=== PATIENT | male | born 1940 | race Caucasian/White ===

== ENCOUNTER 2018-06-22 16:12 | Emergency (ER) | payer MEDICARE ==
[2018-06-22] MEDS ORDERED: Adacel (T-DAP) 0.5 ML SYRINGE ONE (16:34)
[2018-06-22] MEDS ORDERED: Lidocaine 1% w/Epinephrine 1:100K 20 ML VIAL ONE (16:34)
[2018-06-22] MEDS ORDERED: Bacitracin Zinc 1 Packet ONE (17:34)
--- NOTE | 2018-06-22 17:36 | CT ---
CT OF THE BRAIN WITHOUT CONTRAST: 06/22/18 INDICATION: History of fall. COMPARISON: None. FINDINGS: There is moderate chronic small vessel white matter ischemic changes. 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 There is a prominent lucency involving the right parietal skull measuring 1.7 cm. There is also luce ncies involving the bilateral frontal skull measuring 6 mm on the left and 7 mm on the right. No lino tional calvarial lesion is evident. There is mild mucosal thickening of ethmoid air cells. Small air fluid level is seen in the left maxillary sinus. No definite acute infarct, hemorrhage or hydrocephalus is present. IMPRESSION: 1. No definite acute intracranial abnormality. 2. Chronic ischemic change as above. 3. Lucency involving the inner and outer table of the right parietal skull is nonspecific and ma y reflect a large prominent venous barrow. Similar appearing lucencies are seen involving the frontal s kull bilaterally. Metastatic disease is not excluded. Followup MRI of the brain with and without con trast may be helpful for additional characterization. 4. Scalp contusion involving the vertex of the skull. 5. Mucosal thickening within the ethmoid air cells. A small air fluid level in the left maxillar y sinus. POS: [facility]
== END 2018-06-22 17:53 | disposition home or self-care (01) ==
LOC: SCSER 16:12
DX: S01.01XA Laceration without foreign body of scalp, initial encounter (principal); S02.0XXA Fracture of vault of skull, initial encounter for closed fracture; J32.9 Chronic sinusitis, unspecified; I48.91 Unspecified atrial fibrillation; Z79.82 Long term (current) use of aspirin; Z23 Encounter for immunization; W01.10XA Fall on same level from slipping, tripping and stumbling with subsequent striking against unspecified object, initial encounter; Y93.01 Activity, walking, marching and hiking; Y92.480 Sidewalk as the place of occurrence of the external cause
CPT/HCPCS: 70450; 90715; J2001

== ENCOUNTER 2018-06-22 23:02 | Emergency (ER) | payer MEDICARE ==
[2018-06-22] MEDS ORDERED: Lidocaine 1% w/Epinephrine 1:100K 20 ML VIAL ONE (23:25)
--- NOTE | 2018-06-28 06:03 | PQF ---
[facility] POST DISCHARGE CLINICAL DOCUMENTATION IMPROVEMENT CLARIFICATION FORM l Todays Date 06/26/18 l Patients Name Timi Johnson l Acct #N [id number] l Admit Date 06/22/18 l Disch Date 06/22/18 Pharmacy Clinical Specialist Name Lizeth Infante Email: [email or web address]: To be completed by Pharmacy Clinical Specialist: Present Clinical Indicators - Signs / Symptoms Results and Location in Medical Record [ ] Documentation of: laceration length [ ] [ ] [ ] [ ] [ ] [ ] [ ] [ ] Risks [ ] [ ] [ ] Treatment [ ] Laceration Query for length of laceration repair done in the scalp [ ] [ ] To be completed by Physician: DO Pace Matthew The documentation in this patients record requires clarification to ensure coding compliance and accuracy. Check the appropriate box and include in your discharge summary. [ ] [ ] [ ] [ ] Please check this box if this does not apply to this patient [ ] Unable to determine [ ] Other diagnosis: Review the following information and exercise your independent professional judgment in responding to the clarification. Based upon the clinical findings, risk factors, and treatment, please clarify if you are treating one of the above probable or suspected diagnoses. Physician Signature: Date Time MTDD
== END 2018-06-23 00:20 | disposition home or self-care (01) ==
LOC: SCSER 23:02
DX: L76.21 Postprocedural hemorrhage of skin and subcutaneous tissue following a dermatologic procedure (principal); I48.91 Unspecified atrial fibrillation; Z79.82 Long term (current) use of aspirin
CPT/HCPCS: 12004; 70450; 90471; 90715; J2001

== ENCOUNTER 2018-09-03 16:03 | Emergency (ER) | payer MEDICARE ==
[2018-09-03] MEDS ORDERED: Lidocaine 1% 20 ML MDV ONE (16:21)
[2018-09-03] MEDS ORDERED: Adacel (T-DAP) 0.5 ML SYRINGE ONE (17:22)
--- NOTE | 2018-09-03 18:42 | RAD ---
THREE VIEWS LEFT THUMB: 09/03/18 HISTORY: Patient had saw fall on left thumb. Went through his nail. AP, lateral and oblique views left thumb demonstrates injury seen to the left thumb nail bed. There i s a small area of osseous injury to the distal tuft distal phalanx first digit left thumb. No definit e fracture seen. IMPRESSION: Nail bed and adjacent distal phalangeal tuft osseous injury. POS: [facility]
== END 2018-09-03 17:47 | disposition home or self-care (01) ==
LOC: SCSER 16:03
DX: S67.02XA Crushing injury of left thumb, initial encounter (principal); I48.91 Unspecified atrial fibrillation; Z79.82 Long term (current) use of aspirin; Z79.899 Other long term (current) drug therapy; W27.0XXA Contact with workbench tool, initial encounter
CPT/HCPCS: 64450; 90715; J2001

== ENCOUNTER 2018-12-23 08:45 | Inpatient (IN) | payer MEDICARE ==
[2018-12-23 08:14] VITALS: BMI 26.2
[2019-01-04] MEDS ORDERED: Vancomycin HCl 1.5 GM in Sodium Chloride 0.9% 250 ML 300 ML IVPB SCH (06:45)
[2019-01-04] MEDS ORDERED: Sodium Chloride 0.9% 100 ML ONE (06:49)
[2019-01-04] MEDS ORDERED: Tranexamic Acid 1,000 MG/10 ML VIAL ONE (06:49)
[2019-01-04] MEDS ORDERED: ceFAZolin Sodium (SDC) 2 GM/100 ML BAG ONE (06:49)
[2019-01-04] MEDS ORDERED: Midazolam HCl 2 mg/2 ml Vial ONE (07:11)
[2019-01-04] MEDS ORDERED: Fentanyl 100 MCG/2 ML VIAL ONE ×5 (07:12→12:21)
[2019-01-04] MEDS ORDERED: Acetaminophen 500 MG TAB PO PRN (08:07)
[2019-01-04] MEDS ORDERED: Naloxone HCl 0.4 mg/ml Vial IVP PRN (08:15)
[2019-01-04] MEDS ORDERED: Naloxone HCl 0.4 mg/ml Vial IV PRN (08:15)
[2019-01-04] MEDS ORDERED: traMADol HCl 50 MG TAB PO PRN ×2 (08:15)
[2019-01-04] MEDS ORDERED: Promethazine HCl 25 MG/ML VIAL IM PRN ×3 (08:15→10:20)
[2019-01-04] MEDS ORDERED: Ketorolac Tromethamine 30 MG/ML VIAL IVP PRN (08:15)
[2019-01-04] MEDS ORDERED: Ondansetron PF 4 MG/2 ML Vial IVP PRN ×2 (08:15→08:55)
[2019-01-04] MEDS ORDERED: diphenhydrAMINE 25 MG CAP PO PRN ×2 (08:15→08:55)
[2019-01-04] MEDS ORDERED: diphenhydrAMINE 50 MG/ML VIAL IVP PRN (08:15)
[2019-01-04] MEDS ORDERED: diphenhydrAMINE 50 MG/ML VIAL IM PRN (08:15)
[2019-01-04] MEDS ORDERED: HYDROcodone/Acetaminophen 5/325 mg Tablet PO PRN ×2 (08:15)
[2019-01-04] MEDS ORDERED: Zolpidem Tartrate 5 MG TAB PO PRN ×2 (08:15→08:55)
[2019-01-04] MEDS ORDERED: Bupivacaine 0.25% 10 ML VIAL EPIDURAL PRN (08:15)
[2019-01-04] MEDS ORDERED: Hydrocerin (Eucerin) Cream 120 gm Jar TOP PRN (08:15)
[2019-01-04] MEDS ORDERED: Promethazine HCl 25 MG SUPP PR PRN (08:15)
[2019-01-04] MEDS ORDERED: HYDROcodone/Acetaminophen 10/325 mg Tablet PO PRN ×2 (08:55)
[2019-01-04] MEDS ORDERED: Acetaminophen 325 MG TAB PO PRN (08:55)
[2019-01-04] MEDS ORDERED: Bupivacaine/Epinephrine 0.25% 30 ML VIAL ONE (08:59)
[2019-01-04] MEDS ORDERED: Aspirin 325 MG TAB PO SCH (09:00)
[2019-01-04] MEDS ORDERED: Meperidine HCl/PF 25 MG/ML VIAL SLOW IVP PRN (10:20)
[2019-01-04] MEDS ORDERED: Promethazine HCl 25 MG/ML VIAL SLOW IVP PRN (10:20)
[2019-01-04] MEDS ORDERED: PACU-Morphine 4MG/ML VIAL SLOW IVP PRN (10:20)
--- NOTE | 2019-01-04 11:39 | RAD ---
XR Hip Lt 2-3 View History: Postop Comparison: None. Findings: Satisfactory appearance left hip arthroplasty. Expected postoperative gas and edema. Ventra l hernia mesh is appreciated. Impression: Satisfactory postoperative appearance.
[2019-01-04] MEDS ORDERED: Fentanyl 100 MCG/2 ML VIAL EPIDURAL SCH (12:00)
--- NOTE | 2019-01-04 12:09 | OP ---
DATE OF PROCEDURE: 01/04/2019 PROCEDURE PERFORMED: Left total hip arthroplasty using a [place] Accolade II, stem size 6, -2.5 ceramic 36 head, and a 54 mm Tritanium cup. TRUCK SWITCHER: Angela Pierce PA-C BLOOD LOSS: 200. SPECIMEN: None. DRAINS: None. COMPLICATIONS: None. PROCEDURE IN DETAIL: After informed consent was obtained in the preoperative holding area, the patient was taken to the operative suite where general anesthesia was induced. The patient was then positioned in the lateral decubitus position. The hip was then prepped and draped in usual sterile fashion. The patient received preoperative antibiotics. Prior to incision, time-out was called and all members of the surgical team agreed upon site, surgeon, and patient. After this, a longitudinal incision was made directly over the trochanter, noted by palpation extending 2 fingerbreadths above and below the trochanter. The deeper subcutaneous layer was undermined with Bovie electrocautery. The iliotibial band was encountered and incised sharply and the plane below this was developed bluntly. A Charnley retractor was placed to hold this opened. The lateral aspect of the trochanter and the abductor muscles were encountered and then reflected anteriorly off the trochanter using Bovie electrocautery. Once this was completed, the anterior capsule was then encountered and identified and copious capsulotomy was carried out, exposing the femoral neck and head. Dislocation maneuver was then performed and an in situ provisional neck cut was then made using the oscillating saw. Attention was then turned to acetabular preparation and sequential reaming was carried out up to the appropriate diameter. A trial was then malleted into place with good firm resistance and no pullout. The permanent acetabular shell was then malleted squarely into place, as was the appropriate liner. Once completed, the wound was copiously irrigated and attention was then turned to femoral preparation. Flexion and external rotation were performed of the exposed thigh and femoral elevators were then placed at the proximal aspect of the wound. Canal finder was used to establish the length of the canal and sequential reaming was carried out, followed by broaching. Once the appropriate stability was established with the trial broaches with flexion, extension and rotational stability, we did trial with neutral and 2 mm offset incremental necks. Once the appropriate size was decided upon, with good stability noted with flexion, extension, internal and external rotation and shuck being negative, we removed the femoral trial broach and malleted into place the permanent prosthesis with good firm fit, which was also stable to rotation. Again, the hip felt very stable to flexion, extension, internal and external rotation. Leg lengths appeared near anatomic clinically and we were quite happy with prosthesis placement. Copious irrigation was then carried out through the entirety of the wound. Primary closure of the abductors was accomplished with interrupted #2 Vicryl [id number] stitches and the IT band was then closed with interrupted #2 Vicryl, oversewn with a #2 running barbed Quill stitch. Subcutaneous fascia was closed with running barbed Quill stitch and a subcuticular Monocryl barbed Quill stitch was used for skin closure and augmented with skin cement. A sterile dressing was applied. The procedure was terminated without any complication. All counts were correct. The patient was awakened in the operative suite and taken to the recovery room in stable condition. Job ID: [id number]
[2019-01-04] MEDS ORDERED: Lidocaine 1.5% w/Epi 1:200K 30 ML VIAL (Epid Use) ONE (13:27)
[2019-01-04] MEDS ORDERED: Glycopyrrolate 0.2 MG/ML 5 ML SYRINGE ONE (13:30)
[2019-01-04] MEDS ORDERED: ePHEDrine 50 MG/ML VIAL ONE (13:30)
[2019-01-04] MEDS ORDERED: Lidocaine 1% PF 5 ML VIAL ONE (13:30)
[2019-01-04] MEDS ORDERED: Dexamethasone 20 MG/5 ML VIAL ONE (13:30)
[2019-01-04] MEDS ORDERED: Rocuronium Bromide 10 MG/ML (10ML VIAL) ONE (13:30)
[2019-01-04] MEDS ORDERED: PROPOFOL 200 MG/20 ML VIAL ONE (13:30)
[2019-01-04] MEDS ORDERED: PHENYLEPHRINE-NS 100 MCG/ML 10 ML SYRINGE ONE (13:30)
[2019-01-04] MEDS ORDERED: Ondansetron PF 4 MG/2 ML Vial ONE (13:30)
[2019-01-04] MEDS ORDERED: Fentanyl 100 MCG/2 ML VIAL SLOW IVP SCH (14:00)
[2019-01-04] MEDS: Triamterene/Hydrochlorothiazide 37.5 mg/25 mg Tablet PO SCH (14:59)
[2019-01-04] MEDS: Sodium Chloride 0.9% 1,000 ML IV SCH ×3 (14:59→22:30)
[2019-01-04] MEDS: Aspirin 81 mg Enteric Coated Tablet PO SCH ×2 (14:59→21:40)
[2019-01-04] MEDS: CEFAZOLIN 2 GM in Premix Bag 1 BAG IVPB SCH ×2 (15:51→22:30)
[2019-01-04] MEDS: Flecainide 50 MG TAB PO SCH (21:40)
[2019-01-04] MEDS: Atorvastatin Calcium 20 MG TAB PO SCH (21:40)
[2019-01-05] MEDS: fentaNYL Citrate/PF 500 MCG, Bupivacaine 10 ML in Sodium Chloride 0.9% 80 ML EPIDURAL SCH ×2 (01:00→17:33)
[2019-01-05 05:03] LABS: Hemoglobin 12.9 g/dL (14.0-18.0); Mean Corpuscular HGB CONC 34.9 g/dL (32.0-36.0); Mean Corpuscular Hemoglobin 33.6 pg (27.0-31.0); Mean Corpuscular Volume 96.3 fL (78.0-98.0); Mean Platelet Volume 7.4 fL (7.4-10.4); Platelet Count 154 thou/uL (130-400); RBC Distribution Width 11.8 % (11.5-14.5); Red Blood Cell (RBC) Count 3.85 mill/uL (4.70-6.10); White Blood Cell (WBC) Count 8.4 thou/uL (4.8-10.8)
[2019-01-05] MEDS: Aspirin 81 mg Enteric Coated Tablet PO SCH ×2 (08:35→21:00)
[2019-01-05] MEDS: Flecainide 50 MG TAB PO SCH ×2 (08:35→21:01)
[2019-01-05] MEDS: Triamterene/Hydrochlorothiazide 37.5 mg/25 mg Tablet PO SCH (08:35)
[2019-01-05] MEDS: Senokot S 8.6-50 MG TAB PO SCH ×2 (08:35→21:01)
[2019-01-05] MEDS: Multivitamin W/ Minerals 1 TAB PO SCH (08:35)
[2019-01-05] MEDS: Ferrous Gluconate 324 MG TAB PO SCH ×2 (08:35→21:01)
--- NOTE | 2019-01-05 09:53 | PRG ---
DATE OF SERVICE: 01/05/2019 SUBJECTIVE: Timi is a 78-year-old male postop day 1 from left total hip arthroplasty by Dr. No. He is comfortable. He ambulated 50 feet yesterday evening and had no troubles with that. He did have a little bit of discomfort and I believe the Pain Service has revised his epidural, which is working significantly better today. OBJECTIVE: VITAL SIGNS: Temperature 98.6, pulse 86, respiratory rate is 20, blood pressure is 127/77. GENERAL: He is alert and oriented to person, place, time, and situation. Nonfocal, responsive, and appropriate with examiner, looks comfortable. EXTREMITIES: His incision is clean. There is no shortening or external rotation of the lower extremity. He is neurovascularly intact in the left lower extremity. LABORATORY DATA: Hemoglobin and hematocrit 12.9 and 37.0. IMPRESSION: 1. A 78-year-old male, postop day 1, left total hip arthroplasty, doing well. 2. Mild asymptomatic anemia. PLAN: Continue current care. Probable discharge home tomorrow. Job ID: [id number]
--- NOTE | 2019-01-05 13:24 | PDOC.HOSPP ---
- Subjective Encounter Date: 01/05/19 Encounter Time: 09:45 Subjective: feels better, no sob or chest pain working with PT - Objective Vital Signs & Weight: Vital Signs (12 hours) Temp Pulse Resp BP Pulse Ox 01/05/19 08:35 92 L 01/05/19 08:10 98.6 F 86 20 127/77 92 L 01/05/19 04:00 98.3 F 76 20 115/66 93 L Weight Admit Weight 188 lb Weight 188 lb I&O: 01/04/19 01/05/19 01/06/19 06:59 06:59 06:59 Intake Total 950 Output Total 200 Balance 750 Result Diagrams: 01/05/19 04:33 ROS - Medication Medications: Active Medications Generic Name Dose Route Start Last Admin Trade Name Milena PRN Reason Stop Dose Admin Aspirin 81 mg 01/04/19 09:00 01/05/19 08:35 Ecotrin PO 81 mg BID ARCHIE Administration Atorvastatin Calcium 20 mg 01/04/19 21:00 01/04/19 21:40 Lipitor PO 20 mg HS ARCHIE Administration Ferrous Gluconate 324 mg 01/05/19 09:00 01/05/19 08:35 Fergon PO 324 mg BID ARCHIE Administration Flecainide Acetate 150 mg 01/04/19 21:00 01/05/19 08:35 Tambocor PO 150 mg BID ARCHIE Administration Fentanyl Citrate 500 mcg/ 100 mls @ 6 mls/hr 01/04/19 08:15 01/05/19 01:00 Bupivacaine HCl 10 ml/ Sodium EPIDURAL 100 mls Chloride INF ARCHIE Administration Sodium Chloride 1,000 mls @ 100 mls/hr 01/04/19 09:00 01/04/19 22:30 Normal Saline 0.9% IV Not Given .Q10H ARCHIE Iron/Minerals/Multivitamins 1 tab 01/05/19 09:00 01/05/19 08:35 Theragran M PO 1 tab DAILY ARCHIE Administration Senna/Docusate Sodium 2 tab 01/05/19 09:00 01/05/19 08:35 Senokot S PO 2 tab BID ARCHIE Administration Triamterene/HCTZ 1 tab 01/04/19 09:00 01/05/19 08:35 Maxzide-25 PO 1 tab DAILY ARCHIE Administration - Exam NAD, awake alert Eye: PERRL, anicteric sclera ENT: no oropharyngeal lesions, moist mucosa Neck: supple, no JVD Heart: RRR, no murmur Respiratory: no wheezes, no rales Gastrointestinal: soft, non-tender, normal bowel sounds Extremities: no cyanosis, no edema Extremeties - other findings: left hip in dressing Neurological: CN's grossly intact, no focal deficits Psychiatric: normal affect, A&O x 3 Hosp A/P (1) Status post right hip replacement Code(s): Z96.641 - PRESENCE OF RIGHT ARTIFICIAL HIP JOINT Status: Acute (2) HTN (hypertension) Code(s): I10 - ESSENTIAL (PRIMARY) HYPERTENSION Status: Chronic Qualifiers: Hypertension type: essential hypertension Qualified Code(s): I10 - Essential (primary) hypertension (3) Afib Code(s): I48.91 - UNSPECIFIED ATRIAL FIBRILLATION Status: Chronic Qualifiers: Atrial fibrillation type: paroxysmal Qualified Code(s): I48.0 - Paroxysmal atrial fibrillation (4) Dyslipidemia Code(s): E78.5 - HYPERLIPIDEMIA, UNSPECIFIED Status: Chronic - Plan afib in sinus clinically, on flecainide high dose continue asp bid, lipitor, maxzide marcaine nr block, oral iron will f/u, is hemostable Post op doing well with therapy
[2019-01-05] MEDS: Sodium Chloride 0.9% 1,000 ML IV SCH (14:18)
[2019-01-05] MEDS: Atorvastatin Calcium 20 MG TAB PO SCH (21:00)
[2019-01-06] MEDS: Sodium Chloride 0.9% 1,000 ML IV SCH ×3 (01:08→22:00)
[2019-01-06 06:07] LABS: Hemoglobin 12.5 g/dL (14.0-18.0); Mean Corpuscular HGB CONC 34.2 g/dL (32.0-36.0); Mean Corpuscular Hemoglobin 33.3 pg (27.0-31.0); Mean Corpuscular Volume 97.4 fL (78.0-98.0); Mean Platelet Volume 7.7 fL (7.4-10.4); Platelet Count 136 thou/uL (130-400); RBC Distribution Width 11.9 % (11.5-14.5); Red Blood Cell (RBC) Count 3.75 mill/uL (4.70-6.10); White Blood Cell (WBC) Count 10.5 thou/uL (4.8-10.8)
[2019-01-06] MEDS ORDERED: Chlorhexidine Gluconate 15 ML UDCUP SSP ONE (08:27)
[2019-01-06] MEDS: Senokot S 8.6-50 MG TAB PO SCH ×2 (09:23→22:00)
[2019-01-06] MEDS: Aspirin 81 mg Enteric Coated Tablet PO SCH ×2 (09:23→22:00)
[2019-01-06] MEDS: Flecainide 50 MG TAB PO SCH ×2 (09:24→22:00)
[2019-01-06] MEDS: Triamterene/Hydrochlorothiazide 37.5 mg/25 mg Tablet PO SCH (09:24)
[2019-01-06] MEDS: Multivitamin W/ Minerals 1 TAB PO SCH (09:24)
[2019-01-06] MEDS: Ferrous Gluconate 324 MG TAB PO SCH ×2 (09:24→22:00)
[2019-01-06] MEDS ORDERED: HYDROcodone/Acetaminophen 10/325 mg Tablet PO PRN (10:35)
--- NOTE | 2019-01-06 12:20 | PDOC.HOSPP ---
- Subjective Encounter Date: 01/06/19 Encounter Time: 09:40 Subjective: no c/o palp or chest pain at bedside eating well, pain is well controlled - Objective Vital Signs & Weight: Vital Signs (12 hours) Temp Pulse Resp BP Pulse Ox 01/06/19 11:50 98.6 F 82 14 137/81 93 L 01/06/19 07:30 98.5 F 83 18 129/82 91 L 01/06/19 03:40 98.4 F 82 16 111/76 92 L Weight Admit Weight 188 lb Weight 188 lb I&O: 01/05/19 01/06/19 01/07/19 06:59 06:59 06:59 Intake Total 950 1000 552 Output Total 200 950 650 Balance 750 50 -98 Result Diagrams: 01/06/19 05:45 ROS - Medication Medications: Active Medications Generic Name Dose Route Start Last Admin Trade Name Freq PRN Reason Stop Dose Admin Aspirin 81 mg 01/04/19 09:00 01/06/19 09:23 Ecotrin PO 81 mg BID ARCHIE Administration Atorvastatin Calcium 20 mg 01/04/19 21:00 01/05/19 21:00 Lipitor PO 20 mg HS ARCHIE Administration Ferrous Gluconate 324 mg 01/05/19 09:00 01/06/19 09:24 Fergon PO 324 mg BID ARCHIE Administration Flecainide Acetate 150 mg 01/04/19 21:00 01/06/19 09:24 Tambocor PO 150 mg BID ARCHIE Administration Sodium Chloride 1,000 mls @ 100 mls/hr 01/04/19 09:00 01/06/19 01:08 Normal Saline 0.9% IV Not Given .Q10H ARCHIE Iron/Minerals/Multivitamins 1 tab 01/05/19 09:00 01/06/19 09:24 Theragran M PO 1 tab DAILY ARCHIE Administration Senna/Docusate Sodium 2 tab 01/05/19 09:00 01/06/19 09:23 Senokot S PO 2 tab BID ARCHIE Administration Tramadol HCl 100 mg 01/04/19 08:15 01/05/19 17:01 Ultram PO 100 mg Q6H PRN Administration Moderate Pain 4-6 Triamterene/HCTZ 1 tab 01/04/19 09:00 01/06/19 09:24 Maxzide-25 PO 1 tab DAILY ARCHIE Administration - Exam NAD, awake alert Eye: PERRL, anicteric sclera ENT: no oropharyngeal lesions, dry oral mucosa Neck: supple, no JVD Heart: RRR, no murmur Respiratory: no wheezes, no rales Gastrointestinal: soft, non-tender, normal bowel sounds Extremities: no cyanosis, no edema Neurological: CN's grossly intact, no focal deficits Psychiatric: normal affect, A&O x 3 Hosp A/P (1) Status post right hip replacement Code(s): Z96.641 - PRESENCE OF RIGHT ARTIFICIAL HIP JOINT Status: Acute (2) HTN (hypertension) Code(s): I10 - ESSENTIAL (PRIMARY) HYPERTENSION Status: Chronic Qualifiers: Hypertension type: essential hypertension Qualified Code(s): I10 - Essential (primary) hypertension (3) Afib Code(s): I48.91 - UNSPECIFIED ATRIAL FIBRILLATION Status: Chronic Qualifiers: Atrial fibrillation type: paroxysmal Qualified Code(s): I48.0 - Paroxysmal atrial fibrillation (4) Dyslipidemia Code(s): E78.5 - HYPERLIPIDEMIA, UNSPECIFIED Status: Chronic - Plan afib in sinus clinically, on flecainide high dose continue asp bid, lipitor, maxzide, oral iron hemostable, dc plan per ortho advice Post op doing well with therapy is not on any anticoagulation for paroxysmal afib per family and pt, to f/u with Dr.Lane Rouse as before.
[2019-01-06] MEDS: HYDROcodone/Acetaminophen 10/325 mg Tablet PO PRN ×2 (13:42→22:26)
--- NOTE | 2019-01-06 15:56 | PRG ---
DATE OF SERVICE: 01/06/2019 SUBJECTIVE: Timi is a 78-year-old male, postop day 2 from left total hip arthroplasty. He is still little unsteady on his feet. He is ambulating greater than 100 feet at a time, but still has difficulty transitioning from sitting to standing. OBJECTIVE: VITAL SIGNS: Temperature 98.6, pulse rate is 82, respiratory rate 14 and nonlabored, blood pressure is 137/81. GENERAL: He is alert and oriented to person, place, time, and situation, grossly nonfocal. Responsive and appropriate with examiner. His incision is clean. No strike-through. Leg lengths are normal. No malrotation is identified and he is neurovascularly intact in left lower extremity. LABORATORY DATA: Hemoglobin and hematocrit 12.5 and 36.5. IMPRESSION: 1. A 78-year-old male, postop day 2, left total hip arthroplasty. 2. The patient is still unsteady. At this point, probably require another overnight here to maximize optimal therapeutic advantage to include activities of daily livings and independence. Recheck tomorrow. Probable discharge home. Job ID: [id number]
[2019-01-06] MEDS: Atorvastatin Calcium 20 MG TAB PO SCH (22:00)
[2019-01-07 05:43] LABS: Hemoglobin 12.4 g/dL (14.0-18.0); Mean Corpuscular HGB CONC 33.6 g/dL (32.0-36.0); Mean Corpuscular Hemoglobin 32.6 pg (27.0-31.0); Mean Corpuscular Volume 96.9 fL (78.0-98.0); Mean Platelet Volume 8.5 fL (7.4-10.4); Platelet Count 130 thou/uL (130-400); RBC Distribution Width 11.9 % (11.5-14.5); Red Blood Cell (RBC) Count 3.81 mill/uL (4.70-6.10); White Blood Cell (WBC) Count 9.6 thou/uL (4.8-10.8)
[2019-01-07] MEDS: Sodium Chloride 0.9% 1,000 ML IV SCH (06:06)
[2019-01-07] MEDS: HYDROcodone/Acetaminophen 10/325 mg Tablet PO PRN (06:50)
[2019-01-07 08:02] VITALS: BP 160/76; TEMP 98.8
[2019-01-07] MEDS: Ferrous Gluconate 324 MG TAB PO SCH (08:17)
[2019-01-07] MEDS: Senokot S 8.6-50 MG TAB PO SCH (08:17)
[2019-01-07] MEDS: Aspirin 81 mg Enteric Coated Tablet PO SCH (08:17)
[2019-01-07] MEDS: Flecainide 50 MG TAB PO SCH (08:18)
[2019-01-07] MEDS: Multivitamin W/ Minerals 1 TAB PO SCH (08:18)
[2019-01-07] MEDS: Triamterene/Hydrochlorothiazide 37.5 mg/25 mg Tablet PO SCH (08:18)
--- NOTE | 2019-01-07 10:52 | PDOC.HOSPP ---
- Subjective Encounter Date: 01/07/19 Encounter Time: 09:45 Subjective: is sitting in chair, no sob or palp feels good, at bedside - Objective Vital Signs & Weight: Vital Signs (12 hours) Temp Pulse Resp BP BP Pulse Ox 01/07/19 08:01 98.8 F 98 18 160/76 H 93 L 01/07/19 03:53 98.4 F 78 16 147/81 H 94 L 01/06/19 23:36 98.5 F 77 16 130/73 92 L Weight Admit Weight 188 lb Weight 188 lb I&O: 01/06/19 01/07/19 01/08/19 06:59 06:59 06:59 Intake Total 1000 1052 480 Output Total 950 1200 Balance 50 -148 480 Result Diagrams: 01/07/19 04:43 ROS - Medication Medications: Active Medications Generic Name Dose Route Start Last Admin Trade Name Freq PRN Reason Stop Dose Admin Hydrocodone Bitart/Acetaminophen 2 tab 01/06/19 10:35 01/07/19 06:50 [place] 10/325 PO 2 tab Q4H PRN Administration Pain 5-8 Aspirin 81 mg 01/04/19 09:00 01/07/19 08:17 Ecotrin PO 81 mg BID ARCHIE Administration Atorvastatin Calcium 20 mg 01/04/19 21:00 01/06/19 22:00 Lipitor PO 20 mg HS ARCHIE Administration Ferrous Gluconate 324 mg 01/05/19 09:00 01/07/19 08:17 Fergon PO 324 mg BID ARCHIE Administration Flecainide Acetate 150 mg 01/04/19 21:00 01/07/19 08:18 Tambocor PO 150 mg BID ARCHIE Administration Sodium Chloride 1,000 mls @ 100 mls/hr 01/04/19 09:00 01/07/19 06:06 Normal Saline 0.9% IV Not Given .Q10H ARCHIE Iron/Minerals/Multivitamins 1 tab 01/05/19 09:00 01/07/19 08:18 Theragran M PO 1 tab DAILY ARCHIE Administration Senna/Docusate Sodium 2 tab 01/05/19 09:00 01/07/19 08:17 Senokot S PO 2 tab BID ARCHIE Administration Tramadol HCl 100 mg 01/04/19 08:15 01/05/19 17:01 Ultram PO 100 mg Q6H PRN Administration Moderate Pain 4-6 Triamterene/HCTZ 1 tab 01/04/19 09:00 01/07/19 08:18 Maxzide-25 PO 1 tab DAILY ARCHIE Administration - Exam NAD, awake alert Eye: PERRL, anicteric sclera ENT: no oropharyngeal lesions, moist mucosa Neck: supple, no JVD Heart: RRR, no murmur Respiratory: no wheezes, no rales Gastrointestinal: soft, non-tender, normal bowel sounds Extremities: no clubbing, no edema Neurological: CN's grossly intact, no focal deficits Psychiatric: normal affect, A&O x 3 Hosp A/P (1) Status post right hip replacement Code(s): Z96.641 - PRESENCE OF RIGHT ARTIFICIAL HIP JOINT Status: Acute (2) HTN (hypertension) Code(s): I10 - ESSENTIAL (PRIMARY) HYPERTENSION Status: Chronic Qualifiers: Hypertension type: essential hypertension Qualified Code(s): I10 - Essential (primary) hypertension (3) Afib Code(s): I48.91 - UNSPECIFIED ATRIAL FIBRILLATION Status: Chronic Qualifiers: Atrial fibrillation type: paroxysmal Qualified Code(s): I48.0 - Paroxysmal atrial fibrillation (4) Dyslipidemia Code(s): E78.5 - HYPERLIPIDEMIA, UNSPECIFIED Status: Chronic - Plan afib in sinus, on flecainide high dose continue asp bid, lipitor, maxzide, oral iron hemostable, dc plan per ortho advice Post op doing well with therapy is not on any anticoagulation for paroxysmal afib per family and pt, to f/u with Dr.Lane Rouse as before. will sign off
--- NOTE | 2019-01-07 14:44 | DIS ---
DATE OF ADMISSION: 01/04/2019 DATE OF DISCHARGE: 01/07/2019 DISCHARGE DISPOSITION: Home. PRIMARY DISCHARGE DIAGNOSIS: Left total hip arthroplasty done on 01/04/[address] No. SECONDARY DISCHARGE DIAGNOSES: 1. Hypertension. 2. History of chronic atrial fibrillation and history of chronic paroxysmal atrial fibrillation in sinus. 3. Dyslipidemia. PROCEDURES DONE DURING HOSPITALIZATION: The patient has had left hip total hip arthroplasty done by Dr. oN on 01/04/2019. H and H 12 and 36, platelet count 130. DISCHARGE MEDICATIONS: 1. Lipitor 20 mg p.o. at bedtime. 2. Flecainide 150 mg twice daily. 3. Triamterene with hydrochlorothiazide 37.5/25 mg one tablet daily. 4. Aspirin 81 mg twice daily. ALLERGIES: NO KNOWN DRUG ALLERGIES. DISCHARGE PLAN: The patient will follow up with Dr. No as advised and primary care physician in 1 week. BRIEF COURSE DURING HOSPITALIZATION: The patient initially got admitted on the electively for left total hip arthroplasty. The patient has had this procedure done without any complications. Postop sound physicians were consulted for comanagement of medical issues. He has remained hemodynamically stable with no signs of AFib. His medications including flecainide were continued. He is on aspirin b.i.d. for DVT prophylaxis post hip surgery. Post op he is actively working with PT and is cleared for discharge by . Please see a [id number] documentation for the day of discharge on [facility]. Job ID: [id number] MTDD
== END 2019-01-07 11:30 | disposition home or self-care (01) | DRG 470 ==
LOC: SJJU 01-04 06:03 → EDSTATUS 01-04 08:45 → SURG B 01-04 14:44
PROVIDERS: ADMIT Orthopaedic Surgery; ATTEND Orthopaedic Surgery
PROC: 0SRB039 Replacement of Left Hip Joint with Ceramic Synthetic Substitute, Cemented, Open Approach (ICD-10-PCS; principal; 2019-01-04)
DX: M16.12 Unilateral primary osteoarthritis, left hip (principal); D64.9 Anemia, unspecified; I10 Essential (primary) hypertension; I48.0 Paroxysmal atrial fibrillation; E78.5 Hyperlipidemia, unspecified; H91.90 Unspecified hearing loss, unspecified ear; Z85.828 Personal history of other malignant neoplasm of skin; Z85.46 Personal history of malignant neoplasm of prostate; Z79.82 Long term (current) use of aspirin; Z79.899 Other long term (current) drug therapy
CPT/HCPCS: 36415; 85027; J0690; J1100; J2001; J2250; J2405; J2704; J3010; J3370; J3490; J7050